=== PATIENT | female | born 1950 | race African-American/Black ===

== ENCOUNTER 2016-09-24 17:36 | Emergency (ER) | payer MEDICARE ==
[~2016-09-24] VITALS: Ht 162.6 cm; Wt 94.3 kg
[2016-09-24 17:46] VITALS: BP 162/90
[2016-09-24] MEDS ORDERED: CEPH-264 PO (19:13)
[2016-09-24] MEDS ORDERED: HYDR-971 PO (19:13)
--- NOTE | 2016-09-24 19:14 | PHYS DOC ---
Past Medical History Past Medical History: High Cholesterol, Hypertension, Other Additional Past Medical Histor: PRE-DIABETIC, OP OF SPINE Past Surgical History: Hysterectomy, Tonsillectomy Alcohol Use: None Drug Use: None Adult General Chief Complaint Chief Complaint: FOOT INJURY PAIN [facility] HPI Patient is a 66 year old female who presents with left foot pain for 4 days. She denies any injury to the foot. She has noted that the foot is red, warm, and swollen. She states it is very painful to walk. She denies any fever, chest pain, or shortness of breath. She has not had any recent surgeries, immobilization, or personal or family history of blood clots or clotting disorders. Her PCP is Dr. Tristin Trotter. Review of Systems Review of Systems Constitutional: Denies fever or chills. [] Respiratory: Denies cough or shortness of breath. [] Cardiovascular: Denies chest pain, palpitations or edema. [] Musculoskeletal: Denies back pain or joint pain. Reports left foot pain and swelling. Integument: Denies rash or skin lesions. Reports left foot redness and warmth. Neurologic: Denies headache, focal weakness or sensory changes. [] All systems reviewed and negative unless otherwise stated in the HPI. Allergies Allergies Allergies Coded Allergies Type Severity Reaction Last Updated Verified Sulfa (Sulfonamide Antibiotics) Allergy Unknown Hives 09/24/16 Yes aspirin Allergy Unknown Hives 09/24/16 Yes Physical Exam Physical Exam Constitutional: Well developed, well nourished, no acute distress, non-toxic appearance. [] HENT: Normocephalic, atraumatic, oropharynx moist. [] Eyes: PERRLA, EOMI, conjunctiva normal, no discharge. [] Skin: Warm, dry, no rash. There is erythema of the left foot extending from the first MTP joint laterally across the metatarsals with mild warmth. There is no evidence of injury. There is no abscess or ulceration. Extremities: Left foot tenderness across the metatarsals, ROM intact, mild edema. 2+ pedal pulses. Less than 2 second capillary refill in the toes. Light touch sensation intact in the toes. There is no swelling or tenderness in the ankle or calf. Neurologic: Alert and oriented X 3, normal motor function, normal sensory function, no focal deficits noted. [] Psychologic: Affect normal, judgement normal, mood normal. [] Current Patient Data Vital Signs Vital Signs Date Time Temp Pulse Resp B/P Pulse Ox O2 Delivery O2 Flow Rate FiO2 09/24/16 17:46 98.1 66 16 97 Room Air 98.1 EKG EKG [] Radiology/Procedures Radiology/Procedures Three-view x-ray of the left foot reviewed and interpreted by myself with Dr. Koo. There are no acute fractures or dislocations. Course & Med Decision Making Course & Med Decision Making Pertinent Labs and Imaging studies reviewed. (See chart for details) Patient presents with left foot pain, swelling, redness, and warmth without injury. On exam, there is redness and warmth over the metatarsals with tenderness and mild swelling in the same area where it she is neurovascularly intact. Patient was seen and examined by Dr. Koo as well. The patient appears to have cellulitis of the foot. X-ray was obtained to ensure no bony abnormality. The patient is discharged home with prescription for Keflex and Picher. Return precautions were discussed. She verbalizes understanding and agrees with plan. Dragon Disclaimer Dragon Disclaimer This electronic medical record was generated, in whole or in part, using a voice recognition dictation system. Departure Departure Impression: Primary Impression: Cellulitis of foot, left Disposition: 01 HOME, SELF-CARE Condition: STABLE Referrals: TRISTIN TROTTER (PCP) Patient Instructions: Cellulitis, [id number] Additional Instructions: Your x-ray does not show any broken bones or dislocations. Is complete all the prescribed antibiotics, even if your foot is improving. Please take the prescribed pain medication as directed. Do not drive or operate heavy machinery while taking pain medication. Please follow-up with your primary care doctor if you have increased redness, swelling, or warmth of the foot. Return to the emergency department if you have any new or concerning symptoms. Scripts Hydrocodone/Apap 5-325 (Picher 5-325 Tablet)1 Each Tablet1 Tab PO PRN Q6HRS PRN PAIN #20 TAB Prov:ELSIE DE SANTIAGO 09/24/16 Cephalexin (Keflex)500 Mg Capsule1 Cap PO QID 10 Days Prov:ELSIE DE SANTIAGO 09/24/16 ELSIE DE SANTIAGO Sep 24, 2016 19:14
--- NOTE | 2016-09-25 07:54 | RAD ---
Left foot radiographs History: Pain over first MTP joint, no known injury. Comparison: None. Findings: AP, lateral, and oblique views of the left foot. Mild first MTP degeneration is seen. No acute fracture or dislocation is identified. No focal soft tissue swelling is appreciated. Small Achilles tendon insertional enthesophyte is seen. Impression: 1. No acute osseous traumatic injury identified. 2. Mild first MTP degeneration.
== END 2016-09-24 19:27 | disposition home or self-care (01) ==
LOC: ER 17:36
DX: L03.116 Cellulitis of left lower limb (principal); E78.00 Pure hypercholesterolemia, unspecified; I10 Essential (primary) hypertension; Z88.2 Allergy status to sulfonamides; Z88.6 Allergy status to analgesic agent
CPT/HCPCS: 73630; 99284